=== PATIENT | female | born 1980 | race Caucasian/White ===

== ENCOUNTER → 2020-12-06 17:26 | Outpatient (CLI) | payer OTHER, SELFPAY ==
--- NOTE | 2020-12-06 17:37 | DI.MG.S_ITS ---
Date: 12/06/2020 17:37 At the request of: VIJAYA KERR Procedure: MM screening mammo BI BILATERAL DIGITAL SCREENING MAMMOGRAM 3D/2D WITH CAD: 12/06/2020 CLINICAL: Routine screening. Comparison is made to exam dated: 09/04/2006 mammogram - [facility]. There are scattered fibroglandular elements in both breasts. Current study was also evaluated with a Computer Aided Detection (CAD) system. No significant masses, calcifications, or other findings are seen in either breast. IMPRESSION: NEGATIVE There is no mammographic evidence of malignancy. A 1 year screening mammogram is recommended. This exam was interpreted at Station ID: [id number]. NOTE: For mammograms, a report in lay terms will be sent to the patient. Approximately 15% of breast malignancies will not be visualized mammographically. In the management of a palpable breast mass, a negative mammogram must not discourage biopsy of a clinically suspicious lesion. Electronically Signed By: Yuval velazquez/nellie:12/07/2020 08:51:15 letter sent: Normal Exam ACR BI-RADS Category 1: Negative 3341F
== END ==
PROVIDERS: PCP Internal Medicine; Referring Provider Internal Medicine; Visit Provider Internal Medicine
DX: Z12.31 Encounter for screening mammogram for malignant neoplasm of breast (principal)
CPT/HCPCS: 77063; 77067